=== PATIENT | male | born 1990 | race Asian ===

== ENCOUNTER 2024-09-15 19:13 | Emergency (ER) | payer SELFPAY ==
[2024-09-15 19:16] VITALS: BP 133/86
[2024-09-15 19:34] LABS: % Basophils 1.2 % (0-2); % Eosinophils 8.2 % (0-6); % Immature Granulocytes 0.2 % (0-0.5); % Lymphocytes 16.2 % (20.5-51.1); % Monocytes 6.5 % (1.7-9.3); % Neutrophils 67.7 % (42.2-75.2); Absolute Basophils 0.1 10^3/uL (0-0.2); Absolute Eosinophils 0.7 10^3/uL (0-0.7); Absolute Lymphocytes 1.3 10^3/uL (1.2-3.4); Absolute Monocytes 0.5 10^3/uL (0.1-0.6); Absolute Neutrophils 5.6 10^3/uL (1.4-6.5); Hemoglobin 15.3 g/dL (13.0-18.0); Mean Corpuscular Hgb 32.1 pg (27.0-31.0); Mean Corpuscular Volume 94.5 fL (80.0-94.0); Mean Platelet Volume 8.6 fL (7.4-10.4); Nucleated Red Blood Cells % 0 % (-); Platelet Count 378 10^3/uL (130-400); Red Blood Cell Count 4.76 10^6/uL (4.70-6.10); Red Cell Dist. Width 11.7 % (11.5-14.5); White Blood Cell Count 8.3 10^3/uL (4.8-10.8)
[2024-09-15 19:58] LABS: ALT (SGPT) 19 U/L (0-50); AST (SGOT) 23 U/L (17-59); Alkaline Phosphatase 47 U/L (38-126); Blood Urea Nitrogen 12 mg/dl (9-20); Calcium 9.6 mg/dl (8.4-10.2); Carbon Dioxide 25 mmol/L (22-30); Chloride 107 mmol/L (98-107); Glucose 103 mg/dl (70-99); Potassium 4.7 mmol/L (3.5-5.1); Sodium 142 mmol/L (135-145); Total Bilirubin 1.3 mg/dl (0.2-1.3); eGFR > 60.00
[2024-09-15 20:00] LABS: Lipase 91 U/L (23-300)
[2024-09-15 20:36] LABS: Erythrocyte Sed Rate 16 mm/hour (0-20)
--- NOTE | 2024-09-15 23:58 | ED.GENMED ---
History of Present Illness
General
Chief Complaint: Abdominal Symptoms
Source: patient
Exam Limitations: none
Time Seen by Provider: 09/15/24 23:57
Nursing documentation reviewed up to this point in time: agreed with
History of Present Illness
History of Present Illness:
This is a 34-year-old male with no past medical history presents emergency department today with concerns of abdominal pain. Patient reports that this started 2 days ago. He started to feel lower abdominal cramping and stated that it started to
become more severe. This started suddenly. He states that he is at baseline dull ache and then the pain will get acutely worse at times. He states that the pain is not related to eating. He does note a decreased appetite. He denies any nausea
or vomiting. He denies any fevers or chills. He is never had pain like this in the past. He denies any past history of intra-abdominal surgeries. He denies any chest pain or shortness of breath. Of note, he notes that he recently finished
antibiotics for strep pharyngitis. He does have a family history of Crohn's disease. Patient reports over the past 24 hours, he started to develop bloody stools. He reports is now just looser. He also notes that he feels that he constantly has
the urge to defecate. He denies any armando rectal bleeding. Patient does smoke tobacco products daily. He denies any daily NSAID use.
Review of Systems
Review of Systems
All Other Systems: ROS reviewed and negative except as documented in HPI and ROS
Phy Exam
Physical Exam
Physical Exam:
General: Patient is well appearing and in no acute distress; non-toxic
Skin: Warm and dry, no rashes or lesions
Head: Normocephalic, atraumatic
Eyes: Sclera non-icteric. EOMs intact.
Cardiac: Regular rate and rhythm, no murmur
Peripheral Vascular: No lower extremity swelling or edema
Pulm: Normal respiratory effort, no wheezes, rales,
Abdomen: Abdomen soft, there is central abdominal tenderness to palpation with some guarding, normoactive bowel sounds
Genitourinary: No active rectal bleeding, heme-negative stool, no lesions
Neuro: CN II-XII intact, no focal neurologic deficits.
Psychiatric: Appropriate mood and affect.
Course
Orders/Labs/Results
Orders:
Orders
09/15/24 19:25
C-Reactive Protein Urgent
Comment: ADD ON
Complete Blood Count/With Diff Urgent
Comprehensive Metabolic Panel Urgent
Erythrocyte Sed Rate Urgent
Comment: ADD ON
Lipase Urgent
09/15/24 19:27
Add On- LAB Urgent
Tests Added?: crp, esr
09/16/24
CT Abd/pelvis W Iv Cont Urgent
Reason For Exam: abd pain, bloody stool
09/16/24 00:14
0.9% Sodium Chloride 500 ml [Nss] 500 ml IV BOLUS
09/16/24 01:58
Ketorolac [Toradol] 15 mg IV NOW STA
09/16/24 02:22
Morphine Sulfate 2 mg IV NOW STA
09/16/24 03:00
Calprotectin, Fecal [S] Urgent
Date Specimen was Collected: 09/16/24
Time Specimen was Collected: 02:58
C DIFF [C difficile Antigen & Toxins] Urgent
STEPHIE Source: Feces/Stool
Specimen Description:
Date Specimen was Collected: 09/16/24
Time Specimen was Collected: 02:58
Stool Culture Urgent
STEPHIE Source: Feces/Stool
Specimen Description:
Date Specimen was Collected: 09/16/24
Time Specimen was Collected: 02:58
Abnormal Lab Results
09/15/24
19:25
MCV 94.5 H fL
(80.0-94.0)
MCH 32.1 H pg
(27.0-31.0)
Lymphocytes % 16.2 L %
(20.5-51.1)
Eosinophils % 8.2 H %
(0-6)
Glucose 103 H mg/dl
(70-99)
09/15/24 19:25
09/15/24 19:25
Vital Signs
Initial and Last Documented VS:
Initial Vital Signs
Temp Pulse Resp BP Pulse Ox
98.1 F 109 20 133/86 96
09/15/24 19:16 09/15/24 19:16 09/15/24 19:16 09/15/24 19:16 09/15/24 19:16
Last Documented Vital Signs
Temp Pulse Resp BP Pulse Ox
98.3 F 57 16 112/74 98
09/16/24 00:59 09/16/24 00:59 09/16/24 00:59 09/16/24 00:59 09/16/24 00:59
MDM/Problems Addressed
Differential Diagnosis Includes:
Colitis, bleeding hemorrhoid, diverticulitis, inflammatory bowel disease
MDM/Problems Addressed:
This is a 34-year-old male with no past medical history presents emergency department today with concerns of abdominal pain. Patient reports that this started 2 days ago. He started to feel lower abdominal cramping and stated that it started to
become more severe. On physical exam is well-appearing no acute distress he is afebrile, he does have some lower abdominal tenderness but his abdomen is soft. He is not actively bleeding and there is no stool within the rectal vault. CT scan
findings concerning for acute gastroenteritis versus inflammatory findings consistent with Crohn's disease. Reviewed case with attending on-call. Symptoms consistent with Crohn's disease vs infectious colitis/ileitis, patient will require further
workup as an outpatient. Will treat with ciprofloxacin and Flagyl to cover for any infectious etiology, stool culture sent off. Dr. Moore states that she will make arrangements for the office to call patient to schedule follow up appointment.
Patient stable for discharge.
*Critical Care Note
Total Time (30-74mins, 75-104mins- exclusive of procedures): Not Applicable
ED Attending Note
-
Portions of this chart may have been created with voice recognition software.� Occasional wrong word or��sound alike� substitutions may have occurred due to the inherent limitations of voice recognition software.
Discharge Plan
Departure
Patient Disposition: Home (Routine Discharge)
Date of Disposition: 09/16/24
Time of Disposition: 02:40
Patient with high blood pressure during this ER visit?: Yes
Condition: Good
Discharge Problem:
Abdominal pain, Inflammation of intestine, Hematochezia
Instructions: Bloody stools in adults, Abdominal Pain, BLOOD PRESSURE
Prescriptions:
New
ciprofloxacin HCl 500 mg tablet
500 mg PO BID 7 Days Qty: 14 0RF
metronidazole 250 mg tablet
250 mg PO TID 7 Days Qty: 21 0RF
Referrals:
NONE,* [Family Provider] -
Stephan Moore MD [Active] - Call in 1-3 days for appt
Activity Restrictions/Additional Instructions:
Your information was discussed with Dr. Moore.
You should receive a call from the office within the coming days. Please call attached number should you not receive a call to schedule an appointment.
PLEASE RETURN EMERGENCY DEPARTMENT SHOULD YOU DEVELOP DIZZINESS, LIGHTHEADEDNESS, PERSISTENT BLEEDING, LOSS OF CONSCIOUSNESS, ACUTE WORSENING OR SYMPTOMS, CHEST PAIN OR SHORTNESS OF BREATH, OR ANY OTHER SIGNS OR SYMPTOMS WORRISOME TO YOU.
Interventions
Interventions:
*Risk Screen - Suicide Last Done: 09/16/24 00:59
*General Assessment Last Done: 09/15/24 19:16
*Neglect/Abuse Screening Last Done: 09/16/24 00:59
*ED- Fall Risk Assessment Last Done: 09/16/24 00:59
*ED COVID-19 Vaccine History Last Done: 09/16/24 00:59
*Nursing Disposition Last Done: 09/16/24 02:59
KO-Bjcdzb-Kceqydxcxu Assessment Last Done: 09/16/24 00:59
Discharge Date and Time
Discharge Date/Time: 09/16/24 02:59
Print Language: [email or web address]
[2024-09-16] MEDS: NSS 500 IV (00:55)
[2024-09-16 00:59] VITALS: BP 112/74; BMI 25.8
[2024-09-16] MEDS: TORADOL 15 MG IV (02:08)
[2024-09-16] MEDS: MORPHINE SULFATE 2 MG IV (02:32)
[2024-09-18 22:13] LABS: Calprotectin, Fecal 58 ug/g (<=49)
== END 2024-09-16 02:59 | disposition home or self-care (01) ==
LOC: EMR 19:13
PROVIDERS: Physician Assistant; Student in an Organized Health Care Education/Training Program; EMERGENCY PHYSICIAN Emergency Medicine
DX: K52.9 Noninfective gastroenteritis and colitis, unspecified (principal); K92.1 Melena
CPT/HCPCS: 96374; 96375; 96361; 99284; 74177; 80053; 83690; 83993; 85025; 85652; 86140; 87045; 87046; 87324; 87427; 87449; Q9967

== ENCOUNTER 2024-10-03 06:36 | Day surgery (SDC) | payer OTHER, SELFPAY | END 2024-10-03 11:43 | disposition home or self-care (01) | LOC: GI 06:36 | PROVIDERS: ATTENDING PHYSICIAN Internal Medicine Gastroenterology | DX: K62.5 Hemorrhage of anus and rectum (principal); R93.3 Abnormal findings on diagnostic imaging of other parts of digestive tract; K64.0 First degree hemorrhoids; K63.89 Other specified diseases of intestine; D12.5 Benign neoplasm of sigmoid colon; K52.9 Noninfective gastroenteritis and colitis, unspecified | CPT/HCPCS: 45385; 45380; 88305 ==